=== PATIENT | female | born 1975 | race Two or more races ===

== ENCOUNTER → 2024-10-21 | Outpatient (CLI) | payer MEDICAID, SELFPAY ==
--- NOTE | 2024-10-21 09:30 | XR_ITS ---
Examination: Screening digital mammography, bilateral Computer aided detection 3-D breast Tomosynthesis, bilateral Date and time of exam: October 21, 2024 0917 hours Compared to mammograms dating to September 27, 2015 Indication: Screening Technique: Nonmagnified MLO, CC views of the breasts to been obtained, reconstructed from 3-D Tomosynthesis images. R2 computer aided detection program utilized for evaluation of suspicious masses and/or abnormal calcifications. 3-D Tomosynthesis images obtained. Findings: Scattered areas of fibroglandular density. Benign calcifications 10 mm oval circumscribed nodule upper outer right breast posterior depth Impression: BI-RADS Category 0: Incomplete: Need additional imaging evaluation. 10 mm oval circumscribed nodule upper outer right breast posterior depth, recommend follow-up spot tomographic views of this nodule as well as right breast sonography to complete the workup
== END | disposition home or self-care (01) ==
LOC: CDIM 09:08
PROVIDERS: Referring Provider Student in an Organized Health Care Education/Training Program; Visit Provider Student in an Organized Health Care Education/Training Program
DX: Z12.31 Encounter for screening mammogram for malignant neoplasm of breast (principal); N63.11 Unspecified lump in the right breast, upper outer quadrant
CPT/HCPCS: 77063; 77067

== ENCOUNTER → 2024-11-27 | Outpatient (CLI) | payer MEDICAID, SELFPAY ==
--- NOTE | 2024-11-27 09:30 | XR_ITS ---
Examination: Breast ultrasound, unilateral, right complete Date and time of exam: November 19, 2019 5:10 AM Indications: Mammogram October 21, 2024 10 mm nodule upper outer right breast Technique: Real-time anna scale ultrasonographic imaging performed right breast including all 4 quadrants as well as nipple retroareolar and axillary region. Findings: 11:00 cyst right breast No solid nodules Impression: BI-RADS Category 2: Benign findings
--- NOTE | 2024-11-27 10:00 | XR_ITS ---
Examination: Diagnostic digital mammography, unilateral, right Computer aided detection 3-D breast Tomosynthesis, unilateral Date and time of exam: 11/19/2024, 10:09 AM Comparisons: 10/21/2024. Correlation with today's ultrasound exam. Indications: Further evaluation of abnormality seen on recent screening exam Technique: Nonmagnified MLO, CC views of the right breast have been obtained, reconstructed from 3-D Tomosynthesis images. R2 computer aided detection program utilized for evaluation of suspicious masses and/or abnormal calcifications. 3-D Tomosynthesis images obtained. Technologist: Findings: There are scattered areas of fibroglandular density.1.3 cm oval partially indistinct mass persists in the outer lower outer quadrant. This mass appears larger than anything demonstrated on today's ultrasound exam. Otherwise, no evidence of abnormal masses or suspicious calcifications. Impression: 1.3 cm oval partially indistinct mass in the lower outer quadrant without definite sonographic correlate. Recommend repeat ultrasound evaluation with radiologist in attendance. BI-RADS category 0: Incomplete assessment; need additional imaging evaluation
== END | disposition home or self-care (01) ==
PROVIDERS: PCP Student in an Organized Health Care Education/Training Program; Referring Provider Student in an Organized Health Care Education/Training Program; Visit Provider Student in an Organized Health Care Education/Training Program
DX: R92.8 Other abnormal and inconclusive findings on diagnostic imaging of breast (principal); N63.13 Unspecified lump in the right breast, lower outer quadrant
CPT/HCPCS: 76641; 77061; 77065; G0279